=== PATIENT | male | born 1990 | race Hispanic/Latino ===

== ENCOUNTER 2020-01-06 23:23 | Emergency (ER) | payer OTHER ==
[2020-01-07] MEDS ORDERED: LORAZEPAM 2 MG/ML 1 ML VIAL ONE (00:20)
== END 2020-01-07 01:18 | disposition home or self-care (01) ==
LOC: EDH 23:23
DX: F43.0 Acute stress reaction (principal); R06.4 Hyperventilation; R20.2 Paresthesia of skin; Z72.0 Tobacco use
CPT/HCPCS: 71045; 96372; 99283; J2060

== ENCOUNTER 2024-07-22 17:34 | Emergency (ER) | payer SELFPAY ==
[~2024-07-22] VITALS: Ht 167.6 cm; Wt 59.0 kg
--- NOTE | 2024-07-22 18:53 | ERN ---
General Chief Complaint: Sore Throat Stated Complaint: LEFT SIDE TENDERNESS Time Seen by MD: 17:35 Time Seen by Midlevel: 17:35 Source: patient History of Present Illness Initial Comments The patient is a 33-year-old male presenting to the emergency department with pain to the left side of his throat that has been ongoing for several months. The patient has not seen a primary care doctor for this issue. Denies any direct injury to the area. Denies any episodes of drooling or dysphagia. Patient is still able to tolerate liquids and solids. No other symptoms reported at this time. Allergies: Coded Allergies: No Known Drug Allergies (Unverified Allergy, Unknown, 07/22/24) Home Meds Active Scripts Methylprednisolone (Medrol) 4 Mg Tab.ds.pk, 1 TAB PO AD for 6 Days, #21 TAB 0 Refills 6 on day 1 then reduce by one tablet daily until gone Prov:SHEFALI PAUL 07/22/24 Past Medical History Past Medical History: No Pertinent History Past Surgical History: None ROS Dictation CONSTITUTIONAL: Negative except for HPI HEAD/FACE: Negative except for HPI EENT: Negative except for HPI RESPIRATORY: Negative except for HPI GASTROINTESTINAL/ABDOMINAL: Negative except for HPI GENITOURINARY: Negative except for HPI MUSCULOSKELETAL: Negative except for HPI INTEGUMENTARY: Negative except for HPI NEUROLOGICAL/PSYCH: Negative except for HPI HEMATOLOGIC/LYMPHATIC: Negative except for HPI All Systems Negative, Except as noted above. 13 point review of systems assessed and all negative except for above. Physical Exam Physical Exam Dictation Vital Signs reviewed General Appearance: Alert, oriented x 3, no acute distress, well developed, nourished. Head and Face: non-traumatic. Eyes: PERRL, pink conjunctivas, eyelid no trauma, anterior chamber with arcus senilis. Ears: Pinnas intact and no signs of trauma or erythema ear canals clear and no discharge TM no erythema Nose: No discharge, no bleeding. Oropharynx: Mouth normal, tongue pink, pharynx clear,no erythema, tonsils no exudates, no abscesses noted, mucous membrane moist Neck: Supple, non-tender, no thyromegaly, no masses, no JVD, no bruits Breast:Deferred Chest:No tenderness, no crepitus, no paradoxical movement, no retractions Lungs:Clear, well-ventilated, symmetric, no rales, no wheezing, no rhonchi, no stridor, good breath sounds bilaterally Heart: Regular rate, regular rhythm, no murmur, no gallops Vascular: no peripheral edema, Abdomen: Soft, positive bowel sounds, nondistended, no guarding, nontender, no rebound, no masses no hepatomegaly, no splenomegaly, no Loera's sign, no hernias. Rectal: Deferred Genital: Deferred Neurological: Normal speech, motor function intact, sensory function intact Musculoskeletal: Neck nontender, full range of motion, back nontender, full range of motion, Extremities: nontender, full range of motion Skin: Color pink, dry, no turgor, no rash, no lacerations, no abrasions, no contusions. Lymphatic: Deferred MDM MDM: The patient is a 33-year-old male presenting to the emergency department with pain to the left side of his throat that has been ongoing for several months. The patient has not seen a primary care doctor for this issue. Denies any direct injury to the area. Denies any episodes of drooling or dysphagia. Patient is still able to tolerate liquids and solids. No other symptoms reported at this time. Physical examination is unremarkable. No evidence of peritonsillar abscess. Uvula is midline. Differential diagnosis: Pharyngitis, peritonsillar abscess, pneumonia, pneumomediastinum There are no social concerns with this patient. Prescription drug management Prescriptions will include: None Medical management and examination interpretation discussions were had by me with other qualified healthcare professionals as indicated for the patient's care. ED Course Orders Procedure Category Date Status Time Chest 1vw RAD 07/22/24 Resulted 17:50 Vital Signs Date Time Temp Pulse Resp B/P (MAP) Pulse Ox O2 Delivery O2 Flow Rate FiO2 07/22/24 19:55 98.1 84 18 137/89 99 Room Air* 0 21 07/22/24 17:37 98.1 86 20 145/95 99 [place] [id number] [address] IMAGING REPORT Signed PATIENT: GILDARDO BERMUDEZ MR#: [id number] : 1990 SEX: M AGE: 33 LOCATION: [facility] ORDER [id number] STATUS: REG ER REPORT#: [id number] SERVICE 1750 REASON: cough ORDERING PHYSICIAN: SHEFALI PAUL PROCEDURE: CXR1VW - CHEST 1VW PORTABLE CHEST RADIOGRAPH INDICATION: cough COMPARISON: 01/07/2020 FINDINGS: Heart size is normal. The pulmonary vascularity and noah appear normal. No abnormal pulmonary parenchymal opacity or consolidation identified. No significant pleural effusion noted. No pneumothorax detected. IMPRESSION: No radiographic evidence for any acute cardiopulmonary process. DICTATED BY: PIA DIOP MD DATE: 07/22/241855 ELECTRONICALLY SIGNED BY: PIA DIOP MD DATE: 07/22/241858 DX & DISP Disposition: Discharge Departure Impression: Primary Impression: Chronic pharyngitis Condition: Stable Scripts Methylprednisolone (Medrol) 4 Mg Tab.ds.pk 1 TAB PO AD for 6 Days, #21 TAB 0 Refills 6 on day 1 then reduce by one tablet daily until gone Prov: SHEFALI PAUL 07/22/24 Additional Instructions: Your chest x-ray is unremarkable. You will need to follow up with your primary care doctor for further evaluation as this may be related to allergies. I have given you a prescription for steroids which should help improve your symptoms over the next couple of days. If your symptoms do not improve over the next couple of days you will need to see an ENT specialist. I have given you a follow up with a local ENT doctor. Referrals: SELF,REFERRAL (PCP) CRISTA JONES III, MD I have reviewed the case, and I agree with, Diagnosis and Plan I performed the substantive portion of the visit. I have reviewed and personally made and approve the management plan that is documented in the note by myself or the MAURA. I acknowledge for responsibility for the patient's management plan. SHEFALI PAUL Jul 22, 2024 18:53
[2024-07-22] MEDS ORDERED: METH4TAB3 PO (18:55)
--- NOTE | 2024-07-22 18:59 | HMCIMG ---
PORTABLE CHEST RADIOGRAPH INDICATION: cough COMPARISON: 01/07/2020 FINDINGS: Heart size is normal. The pulmonary vascularity and noah appear normal. No abnormal pulmonary parenchymal opacity or consolidation identified. No significant pleural effusion noted. No pneumothorax detected. IMPRESSION: No radiographic evidence for any acute cardiopulmonary process.
[2024-07-22 19:55] VITALS: BP 137/89; PULSE 84; RESP 18; TEMP 98.1; O2SAT 99
== END 2024-07-22 20:00 | disposition home or self-care (01) ==
LOC: EDH 17:34
DX: J31.2 Chronic pharyngitis (principal); Z79.899 Other long term (current) drug therapy
CPT/HCPCS: 71045; 99283